=== PATIENT | male | born 1980 | race Asian ===

== ENCOUNTER 2018-03-01 12:19 | Emergency (ER) | payer OTHER ==
[~2018-03-01] VITALS: Ht 182.9 cm; Wt 85.0 kg
[2018-03-01 12:23] VITALS: BP 120/80
[2018-03-01] MEDS ORDERED: predniSOLONE OPHTH SUSP 1%, 5ML RIGHTEYE ONE (12:30)
[2018-03-01] MEDS ORDERED: PLEASE ENTER ALLERGIES MC SCH (13:00)
[2018-03-01] MEDS ORDERED: PLEASE ENTER HEIGHT AND WEIGHT MC SCH (13:00)
== END 2018-03-01 12:54 | disposition home or self-care (01) ==
LOC: ED 12:48
DX: H20.021 Recurrent acute iridocyclitis, right eye (principal); H57.11 Ocular pain, right eye
CPT/HCPCS: 99283